=== PATIENT | male | born 1955 | race Hispanic/Latino ===

== ENCOUNTER 2020-10-28 20:54 | Emergency (ER) | payer OTHER ==
[~2020-10-28] VITALS: Ht 172.7 cm; Wt 81.6 kg
[2020-10-28 21:54] VITALS: BP 109/68
[2020-10-28 21:56] VITALS: BP 109/68
[2020-10-28] MEDS: 0.9%NACL 1000ML 1,000 ML IV ONE (22:30)
[2020-10-28] MEDS: ACETAMINOPHEN 500 MG TABLET PO ONE (22:30)
[2020-10-28 22:31] LABS: BASOPHILS % (AUTO) 0.3 % (0.0-5.0); EOSINOPHILS % (AUTO) 0.1 % (0.0-8.0); HEMATOCRIT 42.2 % (42-54); LYMPHOCYTES % (AUTO) 15.1 % (21.0-51.0); MEAN CORPUSCULAR HEMOGLOBIN 29.4 pg (27.0-33.0); MEAN CORPUSCULAR HGB CONC 33.9 g/dL (32.0-36.0); MEAN CORPUSCULAR VOLUME 86.7 fL (79-99); MONOCYTES % (AUTO) 4.6 % (3.0-13.0); NEUTROPHILS % (AUTO) 79.8 % (40.0-77.0); PLATELET COUNT (AUTO) 140 K/uL (130-400); RED BLOOD CELL COUNT(AUTO) 4.87 MIL/uL (4.50-6.20); RED CELL DISTRIBUTION WIDTH 14.9 % (11.0-15.5); WHITE BLOOD COUNT (AUTO) 6.8 K/uL (4.8-10.8)
[2020-10-28 22:40] LABS: CREATININE 1.1 mg/dL (0.5-1.5); POTASSIUM 3.7 mmol/L (3.5-5.1)
[2020-10-28 22:46] LABS: APPEARANCE,URINE Clear (CLEAR); BILIRUBIN,URINE Negative (NEGATIVE); COLOR,URINE Yellow (YELLOW); GLUCOSE, URINE (UA) Negative (NEGATIVE); KETONES,URINE Trace mg/dL (NEGATIVE); LEUKOCYTE ESTERASE ,URINE Negative (NEGATIVE); NITRATE,URINE Negative (NEGATIVE); OCCULT BLOOD,URINE Moderate (NEGATIVE); PROTEIN,URINE POS 2+ mg/dL (NEGATIVE)
[2020-10-28 22:54] LABS: B-TYPE NATRIURETIC PEPTIDE 34 pg/mL (0-100); BILIRUBIN,TOTAL 0.5 mg/dL (0.2-1.0); CRP QUANTITATIVE 124.1 mg/L (0.00-9.0); TOTAL PROTEIN, SERUM 7.7 g/dL (6.0-8.3)
[2020-10-28 22:57] LABS: BACTERIA,URINE Few /HPF (None Seen); SQUAMOUS EPITHELIAL CELL,UR 0-2 /HPF (0-2)
[2020-10-28] MEDS: ALBUTEROL INHALER 90MCG/INH IH PRN (23:03)
[2020-10-28] MEDS: CEFTRIAXONE 1G VIAL IVP ONE (23:03)
[2020-10-28] MEDS: AZITHROMYCIN 250 MG TABLET PO ONE (23:03)
[2020-10-28] MEDS ORDERED: IVER3TAB PO (23:22)
[2020-10-28] MEDS ORDERED: FLUT1DIS IH (23:22)
[2020-10-28] MEDS ORDERED: ALBUHFA IH (23:22)
[2020-11-01] MEDS ORDERED: CITA-107 PO (15:36)
[2020-11-01] MEDS ORDERED: PROM5SYR PO (15:36)
[2020-11-01] MEDS ORDERED: ASPI-1012 PO (15:36)
[2020-11-01] MEDS ORDERED: METF-444 PO (15:36)
[2020-11-01] MEDS ORDERED: GABA-529 PO (15:36)
[2020-11-01] MEDS ORDERED: ERGO500093 PO (15:36)
[2020-11-01] MEDS ORDERED: TAMS-1 PO (15:36)
[2020-11-01] MEDS ORDERED: OXYB5TAB15 PO (15:36)
== END 2020-10-28 23:38 | disposition home or self-care (01) ==
LOC: EDH 20:54
DX: U07.1 COVID-19 (principal); J98.8 Other specified respiratory disorders
CPT/HCPCS: 36415; 71045; 80053; 81001; 83605; 83880; 84484; 85025; 86140; 87635; 87804 ×2; 87880; 93005; 96361; 96374; 99285; C9803; J0696; J7030

== ENCOUNTER 2023-04-19 17:57 | Emergency (ER) | payer BC, OTHER ==
[~2023-04-19] VITALS: Ht 167.6 cm; Wt 78.9 kg
[~2023-04-19 17:57] MED LIST: ALBUHFA IH; ASCO500T20 PO; ASPI-1012 PO; ATOR10 PO; CITA-107 PO; DEXA6TAB PO; ERGO500093 PO; FLUT1DIS IH; GABA600T10 PO; METF-444 PO; OXYB5TAB20 PO; PROM5SYR PO; ZINC220C6 PO
[2023-04-19 23:09] LABS: HEMATOCRIT 47.4 % (42-54); MEAN CORPUSCULAR HEMOGLOBIN 29.4 pg (27.0-33.0); MEAN CORPUSCULAR HGB CONC 32.9 g/dL (32.0-36.0); MEAN CORPUSCULAR VOLUME 89.3 fL (79-99); PLATELET COUNT (AUTO) 147 K/uL (130-400); RED BLOOD CELL COUNT(AUTO) 5.31 MIL/uL (4.50-6.20); RED CELL DISTRIBUTION WIDTH 15.6 % (11.0-15.5); WHITE BLOOD COUNT (AUTO) 7.6 K/uL (4.8-10.8)
[2023-04-19 23:14] LABS: RAPID GROUP A STREP negative (NEGATIVE)
[2023-04-19 23:18] LABS: BASOPHILS # (AUTO) 0.04 K/uL (0.00-0.20); BASOPHILS % (AUTO) 0.6 % (0.0-5.0); EOSINOPHILS # (AUTO) 0.02 K/uL (0.00-0.70); EOSINOPHILS % (AUTO) 0.3 % (0.0-8.0); IMMATURE GRANULOCYTE ABSOLUTE 0.03 K/uL (0-1); LYMPHOCYTES # (AUTO) 1.1 K/uL (1.0-4.8); LYMPHOCYTES % (AUTO) 14.6 % (21.0-51.0); MONOCYTES # (AUTO) 0.7 K/uL (0.1-1.0); MONOCYTES % (AUTO) 9.8 % (3.0-13.0); NEUTROPHILS # (AUTO) 5.4 K/uL (1.8-7.7); NEUTROPHILS % (AUTO) 74.3 % (40.0-77.0)
[2023-04-19 23:21] LABS: CREATININE 1.2 mg/dL (0.5-1.5); POTASSIUM 3.8 mmol/L (3.5-5.1)
[2023-04-19 23:22] LABS: ALBUMIN 3.8 g/dL (3.5-5.0); BILIRUBIN,TOTAL 0.8 mg/dL (0.2-1.0); TOTAL PROTEIN, SERUM 7.9 g/dL (6.0-8.3)
[2023-04-19 23:23] LABS: INFLUENZA TYPE A Negative For Type A (NEGATIVE); INFLUENZA TYPE B Negative For Type B (NEGATIVE)
[2023-04-19 23:24] LABS: SARS-CoV-2, RNA, NAAT NEGATIVE SARS CoV-2 (NEGATIVE)
[2023-04-20 00:24] VITALS: BP 122/64; PULSE 68; RESP 18; O2SAT 98
[2023-04-20] MEDS ORDERED: IBUP-1493 PO (00:25)
[2023-04-20] MEDS ORDERED: GUAI1TBM19 PO (00:25)
== END 2023-04-20 00:32 | disposition home or self-care (01) ==
LOC: EDH 17:57
DX: J06.9 Acute upper respiratory infection, unspecified (principal); J04.0 Acute laryngitis; I10 Essential (primary) hypertension; Z20.822 Contact with and (suspected) exposure to COVID-19; Z79.82 Long term (current) use of aspirin; Z79.84 Long term (current) use of oral hypoglycemic drugs; Z79.899 Other long term (current) drug therapy
CPT/HCPCS: 36415; 71046; 80053; 85025; 87635; 87804; 87880